=== PATIENT | female | born 1990 | race Caucasian/White ===

== ENCOUNTER 2018-12-15 13:56 | Emergency (ER) | payer BC, OTHER ==
[2018-12-15 14:36] VITALS: BP 121/73
[2018-12-15 14:58] LABS: Influenza A Molecular NEGATIVE (Negative); Influenza B Molecular NEGATIVE (Negative)
--- NOTE | 2018-12-15 15:02 | UC ---
UC General HPI - HPI Summary HPI Summary: 28-year-old woman comes in with a chief complaint of generalized body aches and fatigue and feeling ill. Patient has had episodes of generalized body aches on and off since the fall. About 2 weeks ago her body aches started again and have gradually been worsening. 4 days ago she started with watery diarrhea feeling lightheaded. The abdominal discomfort is crampy and mobile. No fevers no upper respiratory tract infection symptoms. - History of Current Complaint Chief Complaint: UCGeneralIllness Stated Complaint: NAUSEA,ACHEY,FATIGUE Time Seen by Provider: 12/15/18 14:40 Hx Last Menstrual Period: 11/24/18 Pain Intensity: 8 - Allergy/Home Medications Allergies/Adverse Reactions: Allergies Allergy/AdvReac Type Severity Reaction Status Date / Time No Known Allergies Allergy Verified 12/15/18 14:31 Home Medications: Home Medications Citalopram TAB* [Celexa TAB*] 1 tab DAILY 12/15/18 [History Confirmed 12/15/18] traZODone TAB* [Desyrel TAB*] 1 tab BEDTIME 12/15/18 [History Confirmed 12/15/18 ] PMH/Surg Hx/FS Hx/Imm Hx Previously Healthy: Yes - Surgical History Surgical History: None - Family History Known Family History: Positive: Non-Contributory - Social History Alcohol Use: Rare Substance Use Type: None Smoking Status (MU): Never Smoked Tobacco Review of Systems All Other Systems Reviewed And Are Negative: Yes Constitutional: Positive: Fatigue, Other - see hpi Skin: Positive: Negative Eyes: Positive: Negative ENT: Positive: Negative Respiratory: Positive: Negative Cardiovascular: Positive: Negative Gastrointestinal: Positive: Abdominal Pain, Diarrhea Genitourinary: Negative: Dysuria Motor: Positive: Negative Neurovascular: Positive: Negative Musculoskeletal: Positive: Arthralgia, Myalgia Neurological: Positive: Other - see hpi Psychological: Positive: Negative Is Patient Immunocompromised?: No Physical Exam Triage Information Reviewed: Yes Appearance: Well-Nourished, Ill-Appearing - mild, Pain Distress - mild Vital Signs: Initial Vital Signs Temp 98.1 F 12/15/18 14:32 Pulse 86 12/15/18 14:32 Resp 15 12/15/18 14:32 BP 121/73 12/15/18 14:32 Pulse Ox 99 12/15/18 14:32 Vital Signs Reviewed: Yes Eye Exam: Normal Eyes: Positive: Conjunctiva Clear ENT: Positive: Pharynx normal, TMs normal Neck exam: Normal Neck: Positive: Supple Respiratory: Positive: Lungs clear, Normal breath sounds, No respiratory distress Cardiovascular: Positive: RRR Abdomen Description: Positive: Other: - mild mid epigastric, periumbilical and lower abd tenderness. No rebound. Bowel Sounds: Positive: Present Musculoskeletal Exam: Normal Musculoskeletal: Positive: Strength Intact, ROM Intact Neurological Exam: Normal Neurological: Positive: Alert, Muscle Tone Normal Psychological Exam: Normal Psychological: Positive: Age Appropriate Behavior Skin Exam: Normal Course/Dx - Course Course Of Treatment: The cause of the symptoms is unclear. Influenza was negative in clinic. Urine is concentrated indicating dehydration. Plan a get a stool sample to look for pathogens. Also blood work drawn CRP CBC CMP and Lyme TSH and mono. Patient has an appointment scheduled on October 22, 2018 with her primary care physician. The plan is for her to keep that appointment. Reevaluate sooner if worse or any questions or concerns. - Diagnoses Provider Diagnosis: Fatigue, Myalgia, Diarrhea Discharge - Sign-Out/Discharge Documenting (check all that apply): Patient Departure All imaging exams completed and their final reports reviewed: No Studies - Discharge Plan Condition: Stable Disposition: HOME Patient Education Materials: Acute Diarrhea (ED), Fatigue (ED) Forms: *Work Release Referrals: Pennie Varghese MD [Primary Care Provider] - Additional Instructions: FOLLOW UP WITH YOUR DOCTOR ON 12/20/18 SCHEDULED. GET REEVALUATED SOONER FOR ANY WORSENING OF YOUR CONDITION OR ANY QUESTIONS OR CONCERNS. - Billing Disposition and Condition Condition: STABLE Disposition: Home
[2018-12-15 19:12] LABS: ABS Basophils 0 10^3/ul (0-0.2); ABS Eosinophils 0.1 10^3/ul (0-0.6); ABS Lymphocytes 0.8 10^3/ul (1.0-4.8); ABS Monocytes 0.9 10^3/ul (0-0.8); ABS Neutrophils 5.2 10^3/ul (1.5-7.7); ABS Nucleated RBC 0 10^3/ul; Eosinophil % 1.2 %; Hematocrit 42 % (33-41); Hemoglobin 14.8 g/dL (12.0-16.0); Mean Corpuscular HGB Conc 35 g/dL (31-36); Mean Corpuscular Hemoglobin 31 pg (27-31); Mean Corpuscular Volume 89 fL (80-97); Mean Platelet Volume 8.5 fL (7.4-10.4); Nucleated Red Blood Cells % 0.1; Platelet Count 224 10^3/uL (150-450); Red Blood Count 4.72 10^6 /uL (3.70-4.87); Red Cell Distribution Width 13 % (10.5-15); White Blood Count 6.9 10^3/uL (3.5-10.8)
[2018-12-15 19:18] LABS: Albumin 4.1 g/dL (3.2-5.2); Calcium 8.7 mg/dL (8.6-10.3); Potassium 3.6 mmol/L (3.5-5.0); Total Bilirubin 0.5 mg/dL (0.2-1.0)
[2018-12-15 19:25] LABS: Albumin/Globulin Ratio 1.8 (1-3); BUN/Creatinine Ratio 19.1 (8-20); C Reactive Protein 18.54 mg/L (<8.01); EGFR African American 122.9 (>60); EGFR Non-African American 101.6 (>60); Globulin 2.3 g/dL (2-4); Total Protein 6.4 g/dL (6.4-8.9)
[2018-12-15 19:36] LABS: TSH (Thyroid Stimulating Horm) 2.64 mcIU/mL (0.34-5.60)
[2018-12-17 14:16] LABS: EBV Capsid Ag IgG Ab Positive (Negative); EBV Capsid Ag IgM Ab Negative (Negative); Epstein-Barr Nuclear Antigen Positive (Negative)
== END 2018-12-15 16:10 | disposition home or self-care (01) ==
LOC: UCCORT 13:56
DX: R53.83 Other fatigue (principal); R19.7 Diarrhea, unspecified; M79.10 Myalgia, unspecified site; R42 Dizziness and giddiness
CPT/HCPCS: 36415; 80053; 81003; 84443; 85025; 86140; 86308; 86618; 86664; 86665; 99212; G0463